=== PATIENT | male | born 1970 | race African-American/Black ===

== ENCOUNTER 2023-06-09 07:18 | Emergency (ER) | payer OTHER, SELFPAY ==
[2023-06-09] MEDS ORDERED: Famotidine 20 MG TAB ONE (08:13)
[2023-06-09] MEDS ORDERED: Dicyclomine 20 MG TAB ONE (08:13)
[2023-06-09] MEDS ORDERED: Lidocaine 2% Viscous Solution 10 ML, Aluminum & Magnesium Hydroxide 30 ML SSW SCH (08:30)
[2023-06-09 08:32] LABS: ALT (SGPT) 27 U/L (8-55); AST (SGOT) 28 U/L (5-34); Albumin 4.2 g/dL (3.5-5.0); Alkaline Phosphatase 74 U/L (40-110); Anion Gap 14 mmol/L (10-20); BUN (Urea Nitrogen) 18 mg/dL (8.4-25.7); Bilirubin, Total 0.5 mg/dL (0.2-1.2); Calc. Creatinine Clearance 0 mL/min (70-130); Calcium 9.3 mg/dL (7.8-10.44); Carbon Dioxide 22 mmol/L (22-29); Chloride 108 mmol/L (98-107); Estimated GFR 50; Globulin 2.7 g/dL (2.4-3.5); Glucose 85 mg/dL (70-105); Potassium 4.4 mmol/L (3.5-5.1); Protein, Total 6.9 g/dL (6.0-8.3); Sodium 140 mmol/L (136-145)
[2023-06-09 08:35] LABS: Troponin I 0.013 ng/mL (< 0.028)
[2023-06-09 08:46] LABS: Bilirubin Neg (Negative); Blood, Urine Negative (Negative); Glucose, Urine (Dipstick) Normal (Negative); Ketone, Urine Negative (Negative); Leukocyte Negative (Negative); Nitrite Negative (Negative); Protein, Urine (Dipstick) Negative (Neg-Trace); Specific Gravity, Urine 1.015 (1.005-1.030); Urobilinogen Normal mg/dL (Less than 2); pH, Urine 6.5 (5.0-9.0)
[2023-06-09 08:57] LABS: Bacteria/HPF None Seen HPF (None Seen); CAUTI Indications for Culture Pelvic or flank pain; Clarity Clear (Clear); RBC/HPF None Seen HPF (0-3); Squamous Epithelial None Seen HPF (0-3); WBC/HPF None Seen HPF (0-3)
[2023-06-09 08:59] LABS: Urine Culture Reflex No No
== END 2023-06-09 09:45 | disposition home or self-care (01) ==
LOC: CSHERS 07:18
DX: R07.89 Other chest pain (principal); K21.9 Gastro-esophageal reflux disease without esophagitis; I10 Essential (primary) hypertension; R39.15 Urgency of urination
CPT/HCPCS: 36415; 71045; 80053; 81001; 84484; 93005

== ENCOUNTER 2023-06-21 07:40 | Emergency (ER) | payer OTHER ==
[2023-06-21 08:53] LABS: Bilirubin Neg (Negative); Blood, Urine Negative (Negative); Clarity Clear (Clear); Glucose, Urine (Dipstick) Normal (Negative); Ketone, Urine Negative (Negative); Leukocyte Negative (Negative); Nitrite Negative (Negative); Protein, Urine (Dipstick) Negative (Neg-Trace); Urobilinogen Normal mg/dL (Less than 2)
[2023-06-21 09:14] LABS: Bacteria/HPF Rare-Few HPF (None Seen); CAUTI Indications for Culture Dysuria,urgency,freq; Mucous/LPF Rare LPF (<2+); RBC/HPF None Seen HPF (0-3); Sperm/HPF Rare HPF (None Seen); Squamous Epithelial 0-3 HPF (0-3); WBC/HPF 0-3 HPF (0-3)
[2023-06-21 09:15] LABS: Urine Culture Reflex No No
== END 2023-06-21 09:47 | disposition home or self-care (01) ==
LOC: CSHERS 07:40
DX: N40.0 Benign prostatic hyperplasia without lower urinary tract symptoms (principal); I10 Essential (primary) hypertension; K21.9 Gastro-esophageal reflux disease without esophagitis; Z79.899 Other long term (current) drug therapy
CPT/HCPCS: 51798; 81001; 99283

== ENCOUNTER 2023-08-06 04:29 | Emergency (ER) | payer OTHER ==
[2023-08-06 05:32] LABS: SARS-CoV-2 NAA Rapid Test Not Detected (NotDetected)
[2023-08-06] MEDS ORDERED: Oxymetazoline HCl 0.05% ( 15 ML ) ONE (06:03)
== END 2023-08-06 06:15 | disposition home or self-care (01) ==
LOC: CSHERS 04:29
DX: R09.81 Nasal congestion (principal); I10 Essential (primary) hypertension
CPT/HCPCS: 99283

== ENCOUNTER 2023-09-24 02:23 | Emergency (ER) | payer OTHER ==
[2023-09-24] MEDS ORDERED: Pantoprazole 40 MG VIAL ONE (02:51)
[2023-09-24] MEDS ORDERED: Mag-Al Plus 1200/1200/120 MG (30 mL) UDCUP ONE (02:51)
[2023-09-24] MEDS ORDERED: Famotidine/PF 20 mg/2ml Vial ONE (02:52)
[2023-09-24 02:58] LABS: #Eosinphils 0.1 10x3/uL (0.0-0.5); #Monocytes 0.5 10x3/uL (0.0-1.1); #Neutrophils 1.6 10x3/uL (1.5-8.4); %Eosinophils 1.7 % (0.0-6.0); %Lymphocytes 48.7 % (18.0-47.0); %Monocytes 10.9 % (0.0-10.0); %Neutrophils 37.5 % (40.0-75.0); Hematocrit 39.5 % (38.8-50.0); Hemoglobin 14.2 g/dL (13.5-17.5); Mean Corpuscular HGB CONC 35.9 g/dL (32.0-36.0); Mean Corpuscular Hemoglobin 31.1 pg (27.0-33.0); Mean Corpuscular Volume 86.6 fl (81.2-95.1); Mean Platelet Volume 10.1 fl (7.4-10.4); Platelet Count 282 10x3/uL (150-450); RBC Distribution Width 13.6 % (11.5-14.5); Red Blood Cell (RBC) Count 4.56 10x6/uL (4.32-5.72); White Blood Cell (WBC) Count 4.2 10x3/uL (3.5-10.5)
[2023-09-24 03:13] LABS: ALT (SGPT) 27 U/L (8-55); AST (SGOT) 29 U/L (5-34); Albumin 4.4 g/dL (3.5-5.0); Alkaline Phosphatase 84 U/L (40-110); Anion Gap 15 mmol/L (10-20); BUN (Urea Nitrogen) 20 mg/dL (8.4-25.7); Bilirubin, Total 0.3 mg/dL (0.2-1.2); Calc. Creatinine Clearance 0 mL/min (70-130); Calcium 9.6 mg/dL (7.8-10.44); Carbon Dioxide 20 mmol/L (22-29); Chloride 109 mmol/L (98-107); Estimated GFR 36; Globulin 3.1 g/dL (2.4-3.5); Glucose 100 mg/dL (70-105); Lipase 69 U/L (8-78); Potassium 3.9 mmol/L (3.5-5.1); Protein, Total 7.5 g/dL (6.0-8.3); Sodium 140 mmol/L (136-145)
[2023-09-24] MEDS ORDERED: Lorazepam 2 MG/ML VIAL ONE (03:18)
[2023-09-24 03:19] LABS: Troponin I Less than 0.010 ng/mL (< 0.028)
[2023-09-24 05:03] LABS: Troponin I Less than 0.010 ng/mL (< 0.028)
== END 2023-09-24 05:18 | disposition home or self-care (01) ==
LOC: CSHERS 02:23
DX: I12.9 Hypertensive chronic kidney disease with stage 1 through stage 4 chronic kidney disease, or unspecified chronic kidney disease (principal); N18.9 Chronic kidney disease, unspecified; K21.9 Gastro-esophageal reflux disease without esophagitis; Z79.899 Other long term (current) drug therapy
CPT/HCPCS: 36415; 71045; 80053; 83690; 84484; 85025; 93005; 96374; 96375; C9113; J2060; S0028

== ENCOUNTER 2023-12-21 06:09 | Emergency (ER) | payer OTHER, SELFPAY ==
[2023-12-21] MEDS ORDERED: Pantoprazole 40 MG VIAL ONE (06:32)
[2023-12-21 06:59] LABS: #Basophils 0.04 10x3/uL (0.0-0.2); #Eosinphils 0.04 10x3/uL (0.0-0.5); #Neutrophils 0.93 10x3/uL (1.5-8.4); %Basophils 1.4 % (0.0-2.0); %Eosinophils 1.4 % (0.0-6.0); %Lymphocytes 53.7 % (18.0-47.0); %Monocytes 10.5 % (0.0-10.0); %Neutrophils 32.3 % (40.0-75.0); Hematocrit 39.2 % (38.8-50.0); Hemoglobin 13.6 g/dL (13.5-17.5); Mean Corpuscular HGB CONC 34.7 g/dL (32.0-36.0); Mean Corpuscular Hemoglobin 30.8 pg (27.0-33.0); Mean Corpuscular Volume 88.7 fL (81.2-95.1); Platelet Count 251 10x3/uL (150-450); RBC Distribution Width 13.5 % (11.5-14.5); Red Blood Cell (RBC) Count 4.42 10x6/uL (4.32-5.72); White Blood Cell (WBC) Count 2.9 10x3/uL (3.5-10.5)
[2023-12-21 07:12] LABS: ALT (SGPT) 17 U/L (8-55); AST (SGOT) 18 U/L (5-34); Alkaline Phosphatase 71 U/L (40-110); Anion Gap 12 mmol/L (10-20); BUN (Urea Nitrogen) 22 mg/dL (8.4-25.7); Bilirubin, Total 0.3 mg/dL (0.2-1.2); Calc. Creatinine Clearance 0 mL/min (70-130); Calcium 9.3 mg/dL (7.8-10.44); Carbon Dioxide 26 mmol/L (22-29); Chloride 108 mmol/L (98-107); Estimated GFR 45; Globulin 2.5 g/dL (2.4-3.5); Glucose 98 mg/dL (70-105); Lipase 62 U/L (8-78); Potassium 4.5 mmol/L (3.5-5.1); Protein, Total 6.5 g/dL (6.0-8.3); Sodium 141 mmol/L (136-145)
[2023-12-21 07:18] LABS: Troponin I 0.011 ng/mL (< 0.028)
[2023-12-21 07:27] LABS: Bilirubin Neg (Negative); Blood, Urine Negative (Negative); Clarity Clear (Clear); Glucose, Urine (Dipstick) Normal (Negative); Ketone, Urine Negative (Negative); Leukocyte Negative (Negative); Nitrite Negative (Negative); Protein, Urine (Dipstick) Negative (Neg-Trace); Urobilinogen Normal mg/dL (Less than 2)
[2023-12-21 07:34] LABS: CAUTI Indications for Culture Pelvic or flank pain; RBC/HPF 0-3 HPF (0-3); Squamous Epithelial 0-3 HPF (0-3); WBC/HPF 0-3 HPF (0-3)
[2023-12-21 07:35] LABS: Bacteria/HPF Rare-Few HPF (None Seen)
[2023-12-21 07:36] LABS: Urine Culture Reflex No No
[2023-12-21] MEDS ORDERED: Ondansetron PF 4 MG/2 ML Vial ONE (07:39)
[2023-12-21] MEDS ORDERED: Morphine 4 MG/ML VIAL ONE (07:39)
[2023-12-21] MEDS ORDERED: Dexamethasone 10 MG/ML VIAL ONE (07:45)
[2023-12-21] MEDS ORDERED: Ketorolac Tromethamine 30 MG (1 mL) VIAL ONE (07:46)
== END 2023-12-21 10:36 | disposition home or self-care (01) ==
LOC: CSHERS 06:09
DX: K59.00 Constipation, unspecified (principal); I10 Essential (primary) hypertension; F17.210 Nicotine dependence, cigarettes, uncomplicated; Z79.899 Other long term (current) drug therapy
CPT/HCPCS: 74176; 80053; 81001; 83605; 83690; 84484; 85025; 93005; 96374; 96375; C9113; J1100; J1885; J2270; J2405

== ENCOUNTER 2023-12-22 22:20 | Emergency (ER) | payer SELFPAY ==
[2023-12-23] MEDS ORDERED: Lactulose 20 GM (30 mL) UDCUP ONE (00:35)
== END 2023-12-23 00:05 | disposition home or self-care (01) ==
LOC: CSHERS 22:20
DX: K59.00 Constipation, unspecified (principal); I10 Essential (primary) hypertension; K21.9 Gastro-esophageal reflux disease without esophagitis; F17.210 Nicotine dependence, cigarettes, uncomplicated; Z79.899 Other long term (current) drug therapy
CPT/HCPCS: 99283

== ENCOUNTER 2024-07-09 23:35 | Emergency (ER) | payer OTHER ==
[2024-07-10] MEDS ORDERED: Ketorolac Tromethamine 30 MG (1 mL) VIAL ONE (00:12)
[2024-07-10] MEDS ORDERED: Dexamethasone 10 MG/ML VIAL ONE (00:22)
== END 2024-07-10 00:37 | disposition home or self-care (01) ==
LOC: CSHERS 23:35
DX: M25.562 Pain in left knee (principal); M10.9 Gout, unspecified; I10 Essential (primary) hypertension; Z79.899 Other long term (current) drug therapy
CPT/HCPCS: 96372; J1100; J1885